=== PATIENT | female | born 1990 | race Caucasian/White ===

== ENCOUNTER 2019-05-06 19:38 | Emergency (ER) | payer OTHER, SELFPAY ==
[2019-05-06 23:24] LABS: HIV (1/2) Antibody/Antigen Non-Reactive (NonReactive); Hep C IgG Ab Non-Reactive (NonReactive); Hep C Index 0.08 S/CO (0-0.79)
[2019-05-06 23:31] LABS: HBSAB Concentration 18.46 mIU/mL; Hep B Surf AB Reactive (NonReactive)
== END 2019-05-06 21:15 | disposition home or self-care (01) ==
LOC: ERS 19:38
DX: Z77.21 Contact with and (suspected) exposure to potentially hazardous body fluids (principal)
CPT/HCPCS: 86706; 86803; 87389; 99283

== ENCOUNTER 2019-11-30 16:32 | Inpatient (IN) | payer OTHER ==
[2019-11-30] MEDS ORDERED: NS / Oxytocin 40 units/1000ml 1,000 ML IV PRN (17:23)
[2019-11-30] MEDS ORDERED: HYDROcodone/Acetaminophen 5/325 mg Tablet PO PRN ×2 (17:23)
[2019-11-30] MEDS ORDERED: Ondansetron PF 4 MG/2 ML Vial IVP PRN (17:23)
[2019-11-30] MEDS ORDERED: Ibuprofen 800 MG TAB PO PRN (17:23)
[2019-11-30] MEDS ORDERED: Promethazine HCl 25 MG/ML VIAL IM PRN (17:23)
[2019-11-30] MEDS ORDERED: Lidocaine 1% (PF) 30 ML VIAL SC PRN (17:23)
[2019-11-30] MEDS ORDERED: hydrALAZINE 20 MG/ML VIAL SLOW IVP PRN (17:23)
[2019-11-30 17:30] VITALS: BMI 23.5
[2019-11-30] MEDS ORDERED: Lactated Ringer's 1,000 ML IV SCH (17:30)
[2019-11-30 17:58] LABS: Mean Corpuscular HGB CONC 33.4 g/dL (32.0-36.0); Mean Corpuscular Hemoglobin 30.7 pg (27.0-31.0); Mean Corpuscular Volume 91.9 fL (78.0-98.0); Mean Platelet Volume 8.1 fL (7.4-10.4); Platelet Count 316 thou/uL (130-400); RBC Distribution Width 11.8 % (11.5-14.5); Red Blood Cell (RBC) Count 4.55 mill/uL (4.20-5.40); White Blood Cell (WBC) Count 18.1 thou/uL (4.8-10.8)
--- NOTE | 2019-11-30 18:05 | PDOC.BPN ---
- Brief Progress Note OBGYN Attending [id number] Admitted for labor at full term, HX HSV on valtrex (currently on valtrex) Patient seen at bedside at approx 1740. H&P dictated...please see that report
--- NOTE | 2019-11-30 18:21 | PDOC.LDPN ---
Labor & Delivery Progress Note -: Pt has history of HSV diagnosed in the second trimester. Although, discussed with pt and family who are unsure. ACOG discusses if primary lesion is in the third trimester then should be offered. We will not AROM pt to decrease potential risk of transmission. Discussed with patient. Pending records for correct dating on diagnosis. Suleman Corrales DO Discussed with Dr. Huston who was present at bedside.
[2019-11-30 18:35] LABS: HBSAg Index 0.18 S/CO (0-0.99); HIV (1/2) Antibody/Antigen Non-Reactive (NonReactive); HIV 1/2 INDEX 0.17 S/CO (<1.00); Hep B Surf Ag Non-Reactive S/CO (NonReactive); Syphilis Antibody Nonreactive (Nonreactive); Syphilis Antibody Index 0.03 S/CO (<1.00 Non-Reactive)
--- NOTE | 2019-11-30 19:01 | HP ---
TIME SEEN: 1740 hours. LOCATION: Labor and delivery bed 8. The patient of Stella Beauchamp. REASON FOR ADMISSION: Labor at 5-6 cm. HISTORY OF PRESENT ILLNESS: In brief, this is a 28-year-old female, who is a G1, P0, at 40 weeks and 1 day, who started edith. She initially talked to Stella Beauchamp and Stella Beauchamp instructed her to come in for evaluation. It is important to note that Stella Beauchamp currently is away, but will be back or plans to be back around 19:30 or so, and I am covering for now. The patient denies rupture of membranes. The patient does have a history of genital HSV lesions, but she is on Valtrex and does not state any current outbreaks at this time or in the third trimester. REVIEW OF SYSTEMS: Complete review of systems was done and is otherwise negative unless specified in the HPI. She denies vaginal bleeding. She has good movement. She denies breakage of water and she denies any genital HSV prodromal symptoms or lesions. PAST MEDICAL HISTORY: Asthma as a child, but she has not had an attack in greater than 1 year. She does not take any medications for this. ALLERGIES: NONE. PAST SURGICAL HISTORY: Noncontributory. OBSTETRICAL HISTORY: She is a G1, P0. PHYSICAL EXAMINATION: GENERAL: She is having some contraction discomfort, but is in no acute distress. VITAL SIGNS: Pending as she had just arrived to Labor and Delivery. CERVIX: Around 5-6 cm, about 90% effaced, about -1 station. Bag of water intact. Per the RN, who examined the patient (at bedside), there were no evidence of HSV at this time. Monitors are pending per her plan. ASSESSMENT: This is a primigravida at full term, GBS negative by her report, entering the active phase of labor. PLAN: 1. Admit to Labor and Delivery. 2. GBS negative by patient report. 3. I have [employer] Stella Beauchamp and we will cover until she is available. 4. plan given to labor nurse. 5. No evidence of HSV at this time. Job ID: [id number]
[2019-11-30] MEDS ORDERED: Oxytocin 10 UNITS/ML VIAL ONE (19:26)
[2019-11-30] MEDS ORDERED: Misoprostol 200 MCG TAB ONE (22:12)
--- NOTE | 2019-11-30 23:09 | PDOC.LDPN ---
Labor & Delivery Progress Note - Subjective Subjective: painful contractions - Objective Vital signs reviewed and normal: yes General: breathing through contractions Dilation: 9 Effacement: 100% Station: -1 FHT: category 1 AROM: clear fluid - Assessment (1) Primigravida Code(s): Z34.00 - ENCNTR FOR SUPRVSN OF NORMAL FIRST , UNSP TRIMESTER Current Visit: Yes Status: Acute Plan: continue plan of care
[2019-12-01] MEDS ORDERED: Methylergonovine 0.2 MG/ML VIAL ONE (02:01)
[2019-12-01] MEDS ORDERED: Misoprostol 200 MCG TAB ONE (02:02)
--- NOTE | 2019-12-01 02:29 | PDOC.OPDEL ---
OB Operative/Delivery Note Delivery Dr/Surgeon: Nito Pre-Delivery Diagnosis: active labor Procedure/Post Delivery Dx: spontaneous vaginal delivery Weeks gestation: 40 Anesthesia: none - Additional Findings/Plan Placenta delivered: spontaneous (with trailing membranes that were manually removed.) Repaired Obstetrical Laceration: none (right labial. Not repaired. Hemostatic) Estimated blood loss: 700mL see RN note for QBL Compilations/Other Findings: Prolonged decel to 90s for 13 return to 115-120 during crowing. Post delivery plan: routine recovery
[2019-12-01] MEDS ORDERED: Bisacodyl 10 MG SUPP PR PRN (04:14)
[2019-12-01] MEDS ORDERED: NS / Oxytocin 40 units/1000ml 1,000 ML IV SCH (04:14)
[2019-12-01] MEDS ORDERED: Methylergonovine 0.2 MG/ML VIAL IM PRN (04:14)
[2019-12-01] MEDS ORDERED: HYDROcodone/Acetaminophen 5/325 mg Tablet PO PRN ×2 (04:14)
[2019-12-01] MEDS ORDERED: Milk Of Magnesia 30 ML UDCUP PO PRN (04:14)
[2019-12-01] MEDS ORDERED: Benzocaine-Menthol 82.5 ML CAN TOP PRN (04:14)
[2019-12-01] MEDS ORDERED: Lanolin Ointment 7 GM TUBE TOP PRN (04:14)
[2019-12-01] MEDS ORDERED: hydrALAZINE 20 MG/ML VIAL SLOW IVP PRN (04:14)
[2019-12-01] MEDS: Ibuprofen 800 MG TAB PO SCH ×3 (05:24→21:38)
[2019-12-01] MEDS ORDERED: CEFAZOLIN 2 GM in Premix Bag 1 BAG IVPB SCH (06:00)
--- NOTE | 2019-12-01 08:38 | HP ---
ADDENDUM: MEDICATIONS: Valtrex. Job ID: [id number]
[2019-12-01] MEDS ORDERED: Adacel (T-DAP) 0.5 ML SYRINGE IM ONE (09:00)
[2019-12-01] MEDS: Prenatal Vitamin 1 TAB PO SCH (09:46)
[2019-12-01] MEDS: Docusate Calcium (SURFAK) 240 MG CAP PO SCH ×2 (09:46→21:38)
[2019-12-01] MEDS: Ferrous Sulfate 325 MG TAB PO SCH ×2 (09:47→16:29)
[2019-12-02] MEDS: Ibuprofen 800 MG TAB PO SCH (05:15)
[2019-12-02] MEDS: Ferrous Sulfate 325 MG TAB PO SCH (09:36)
[2019-12-02] MEDS: Prenatal Vitamin 1 TAB PO SCH (09:58)
[2019-12-02] MEDS: Docusate Calcium (SURFAK) 240 MG CAP PO SCH (09:58)
[2019-12-02 13:47] VITALS: BP 117/64; TEMP 98.9
== END 2019-12-02 15:40 | disposition home or self-care (01) | DRG 806 ==
LOC: L&D/OP 16:32 → L&D-LIB 17:23 → 3SW 12-01 04:46
PROVIDERS: ADMIT Obstetrics & Gynecology; ATTEND Obstetrics & Gynecology
PROC: 10E0XZZ Delivery of Products of Conception, External Approach (ICD-10-PCS; principal; 2019-12-01)
DX: O76 Abnormality in fetal heart rate and rhythm complicating labor and delivery (principal); O98.52 Other viral diseases complicating childbirth; Z37.0 Single live birth; O70.0 First degree perineal laceration during delivery; Z3A.40 40 weeks gestation of pregnancy; B00.9 Herpesviral infection, unspecified
CPT/HCPCS: 36415; 85027; 86780; 86850; 86900; 86901; 87340; 87389; J0690; J2210; J2590